=== PATIENT | male | born 1960 | race African-American/Black ===

== ENCOUNTER → 2017-02-05 | Day surgery (SDC) | payer BC ==
[~2017-02-05] MED LIST: ACETAMINOPHEN PO; AMLODIPINE BESYL5 MG PO; ASPIRIN EC81 M1 PO; ASPIRIN81 M2 PO; CO Q-1010 MG PO; CO Q10100 MG PO; FENOFIBRATE200 M1 PO; FISH OIL 1,001000 M2 PO; FISH OIL 10001000 MG PO; HUMALOG100 UNIT/2 SUBQ; LEVEMIR FL100 UNIT/1 SUBQ; LEVEMIR100 UNITS/ SUBQ; LEVOTHROID25 MCG PO; MICARDIS40 MG PO; NORVASC PO; NOVOLOG100 UNITS/ INJ; POTASSIUM PO; ROSUVASTATIN CA10 MG PO; SODIUM BICARBO650 MG PO; SYNTHROID PO; TELMISARTAN80 MG PO; VERAPAMIL ER240 M1 PO; VITAMIN D1000 UNI1 PO; VITAMIN D1000 UNI2 PO; ZESTRIL40 MG PO; ZETIA PO
--- NOTE | ~2017-02-05 | OR ---
Unit #: [id number] #: [id number] Patient: PEYTON THAKUR [id number] [address] [id number] [id number] O MR#: [id number] NAME: PEYTON THAKUR. ROOM: Date of Procedure: 02/05/2017 Admission Date: 02/05/2017 Surgeon: Sixto Guardado M.D. : 1960 Attending Physician: Sixto Guardado M.D. Primary Care Physician: Bakari Delacruz M.D. OPERATIVE REPORT ADDITIONAL ATTENDING PHYSICIAN Bakari Delacruz M.D. PREOPERATIVE DIAGNOSES Colorectal cancer screening in an average-risk patient. PROCEDURES PERFORMED Colonoscopy and polypectomy. POSTOPERATIVE DIAGNOSES 1. Single sessile polyp in the sigmoid colon. It was removed using snare polypectomy. The polyp was less than 5 mm in size. 2. Mild sigmoid and descending colon diverticulosis. 3. Rest of the examination up to cecum was normal. The quality of the prep was good. RECOMMENDATIONS 1. Follow up results of polyp histology. 2. Consider repeat colonoscopy in 5 years. SEDATION USED MAC. DESCRIPTION OF PROCEDURE Following detailed explanation of the potential risks and complications of a colonoscopy, namely perforation, bleeding, and complications related to sedation, the patient was brought to GI lab and laid in the left lateral decubitus position. A digital rectal examination was performed, which was normal. Lubricated tip of Olympus video colonoscope was inserted through the anus and advanced under direct vision. The scope was advanced and passed up to sigmoid into descending colon. Scant small diverticula were noted in this area. The scope tip was then navigated all the way up to cecum with visualization of the ileocecal valve and the appendiceal orifice. Preparation was good with good visualization and photodocumentation was obtained. Successive segments of the colonic mucosa were examined upon withdrawal and appeared unremarkable except for a single sessile polyp in the mid sigmoid colon. The latter was about 5 mm in size. It was removed using snare polypectomy. The polyp was retrieved and sent for histology. No additional polyps noted. Other than the left-sided diverticulosis, no other abnormalities were found. The scope was then withdrawn. The patient returned to the recovery area. He Unit #: [id number] #: [id number] Patient: PEYTON THAKUR tolerated the procedure without any postprocedure complications. Dictated by... Benigno Perez/rodrigo TD: 02/05/2017 22:54 JOB #: [id number] OPERATIVE REPORT Page 1 of 1 X Sixto Guardado MD X PROCEDURE OPERATIVE NOTE
== END | disposition home or self-care (01) ==
LOC: COPS 06:48
PROVIDERS: Internal Medicine Gastroenterology
PROC: 0DBN8ZX Excision of Sigmoid Colon, Via Natural or Artificial Opening Endoscopic, Diagnostic (ICD-10-PCS; principal; 2017-02-05 08:00)
DX: Z12.11 Encounter for screening for malignant neoplasm of colon (principal); K63.5 Polyp of colon; K57.30 Diverticulosis of large intestine without perforation or abscess without bleeding; E03.9 Hypothyroidism, unspecified; I10 Essential (primary) hypertension; E11.9 Type 2 diabetes mellitus without complications; Z79.4 Long term (current) use of insulin; Z79.899 Other long term (current) drug therapy; Z87.891 Personal history of nicotine dependence; Z98.890 Other specified postprocedural states
CPT/HCPCS: 82947; 88305; J2250